=== PATIENT | male | born 1965 | race Caucasian/White ===

== ENCOUNTER 2017-03-15 07:04 | Day surgery (SDC) | payer BC ==
[~2017-03-15 07:04] MED LIST: RINGERS SOLUTION,LACTATED 1,000 ML IV PRN
[2017-03-15] MEDS ORDERED: RINGERS SOLUTION,LACTATED 1,000 ML IV ONE (07:45)
--- NOTE | 2017-03-15 09:26 | OR ---
Operative Report - Dictated Report Narrative: Date: 03/15/2017 Preop diagnosis: Screening for colon CA Postop diagnosis: Polyp at 45cm and rectum Procedure: Total Colonoscopy, polypectomy 45cm and rectum Staff surgeon: Isidoro Dominguez MD Specimen: Polyp at 45cm and rectum Anesthesia: MAC per HAND PRESSER EBL: minimal Complications: none apparent Description: After informed consent and appropriate sedation the patient was placed in the left lateral decubitus position. A flexible video colonoscope was advanced under direct vision to the cecum without difficult. The usual landmarks were identified. The scope was slowly withdrawn. The findings were of a normal cecum , ascending colon, hepatic flexure, transverse colon, splenic flexure, descending colon. A polyp was identified at 45cm and biopsied with cold forceps. The remainder of the polyp was destroyed with electrocautery. A rectal polyp was dealt with in a similar fashion. Preparation was excellent and excellent views were obtained. Vasculature and texture throughout appeared normal. A retroflex view was obtained of the anal verge. The patient tolerated the procedure well without apparent complications and was discharged from the endoscopy suite in stable condition. Recommendations: Repeat colonoscopy in 3 years.
[2017-03-15 10:06] VITALS: BP 131/75
== END 2017-03-15 07:05 | disposition home or self-care (01) ==
LOC: AMB 07:04
PROVIDERS: ATTEND Specialist
PROC: 0DBP8ZX Excision of Rectum, Via Natural or Artificial Opening Endoscopic, Diagnostic (ICD-10-PCS; 2017-03-15)
PROC: 0DBE8ZX Excision of Large Intestine, Via Natural or Artificial Opening Endoscopic, Diagnostic (ICD-10-PCS; principal; 2017-03-15 08:00)
DX: Z12.11 Encounter for screening for malignant neoplasm of colon (principal); K63.5 Polyp of colon; K62.1 Rectal polyp; I10 Essential (primary) hypertension; E11.9 Type 2 diabetes mellitus without complications; J44.9 Chronic obstructive pulmonary disease, unspecified; Z87.891 Personal history of nicotine dependence; Z68.42 Body mass index [BMI] 45.0-49.9, adult